=== PATIENT | female | born 1995 | race American Indian/Alaskan Native ===

== ENCOUNTER 2018-12-27 13:51 | Emergency (ER) | payer SELFPAY ==
--- NOTE | 2018-12-27 14:25 | Emergency Department Report ---
Blank Doc - Documentation Documentation: This is a 22-year-old female that presents with some dysuria. Stated is on her menstrual cycle now. Denies any vaginal discharge. This initial assessment/diagnostic orders/clinical plan/treatment(s) is/are subject to change based on patient's health status, clinical progression and re- assessment by fellow clinical providers in the ED. Further treatment and workup at subsequent clinical providers discretion. Patient/guardians urged not to elope from the ED as their condition may be serious if not clinically assessed and managed. Initial orders include: 1- Patient sent to [facility] for further evaluation and treatment 2- UA
--- NOTE | 2018-12-27 14:52 | Emergency Department Report ---
ED Dysuria HPI - HPI Chief Complaint: Urogenital-Female Stated Complaint: URINATION PROBLEMS Time Seen by Provider: 12/27/18 14:24 Duration: 5 Days Location of Discomfort: Urethra (dysuria) Severity: Moderate Symptoms: Dysuria: Yes, Frequency: No, Suprapubic Pain: No, Flank Pain: No, Fever: No, Hematuria: No, Abdominal Pain: No, Previous UTI's: Yes Other History: 23 yo with 1 w hx of dysuria. no vag dc or bleeding. not concerned preg. no fever or chills. ambulatory and non toxic ED Review of Systems ROS: Stated complaint: URINATION PROBLEMS Other details as noted in HPI Comment: All other systems reviewed and negative ED Past Medical Hx - Past Medical History Previous Medical History?: No - Surgical History Past Surgical History?: Yes Additional Surgical History: - Social History Smoking Status: Never Smoker Substance Use Type: None - Medications Home Medications: Home Medications Medication Instructions Recorded Confirmed Last Taken Type Ciprofloxacin HCl [Ciprofloxacin 500 mg PO Q12HR #14 tab 12/27/18 Unknown Rx TAB] Fluconazole [Diflucan TAB] 150 mg PO ONCE #1 tablet 12/27/18 Unknown Rx Dysuria Exam - Exam General: Vital signs noted. No distress. Alert and acting appropriately. Exam: Yes Moist Mucous Membranes, No CVA Tenderness, No Abdominal Tenderness, No Rigidity or Guarding ED Course Vital Signs 12/27/18 14:25 Temperature 98 F Pulse Rate 79 Respiratory 18 Rate Blood Pressure 119/73 O2 Sat by Pulse 100 Oximetry ED Medical Decision Making - Lab Data Result diagrams: 12/27/18 15:32 12/27/18 15:32 - Medical Decision Making Vital Signs 12/27/18 12/27/18 14:25 17:00 Temperature 98 F Pulse Rate 79 62 Respiratory 18 16 Rate Blood Pressure 119/73 Blood Pressure 130/81 [Right] O2 Sat by Pulse 100 100 Oximetry Labs 12/27/18 12/27/18 12/27/18 14:38 15:32 15:32 WBC 9.2 RBC 3.87 Hgb 12.4 Hct 37.1 MCV 96 MCH 32 MCHC 33 RDW 13.2 Plt Count 215 Sodium 143 Potassium 4.7 Chloride 106.2 Carbon Dioxide 28 Anion Gap 14 BUN 8 Creatinine 0.7 Estimated GFR > 60 BUN/Creatinine Ratio 11 Glucose 95 Calcium 9.3 Urine Color Yellow Urine Turbidity Slightly-cloudy Urine pH 6.0 Ur Specific [place] 1.019 Urine Protein 100 mg/dl Urine Glucose (UA) Neg Urine Ketones Neg Urine Blood Mod Urine Nitrite Neg Urine Bilirubin Neg Urine Urobilinogen < 2.0 Ur Leukocyte Esterase Mod Urine WBC (Auto) > 182.0 H Urine RBC (Auto) 61.0 U Epithel Cells (Auto) 8.0 Urine Mucus Few Urine HCG, Qual Negative lmp current non toxic taking po ambulatory labs noted wbc normal no cva tenderness abd snt preg neg medicated in ER dc home with dc plan of care. - Differential Diagnosis ro preg/ro uti/ro pylo. Critical care attestation.: If time is entered above; I have spent that time in minutes in the direct care of this critically ill patient, excluding procedure time. ED Disposition Clinical Impression: UTI (urinary tract infection) Disposition: DC-01 TO HOME OR SELFCARE Is pt being admited?: No Does the pt Need Aspirin: No Condition: Stable Instructions: Urinary Tract Infection in Women (ED) Additional Instructions: DIET TOLERATED MEDS ORDERED TODAY IN ER FOLLOW INSTRUCTIONS ON THE BOTTLE FOLLOW UP PCP WITHIN 48 HOURS TO ENSURE YOU ARE GETTING BETTER ACTIVITY TOLERATED MOTRIN OR TYLENOL FOR PAIN OR FEVER RETURN TO THE ER FOR WORSENING SYMPTOMS NOT RELIEVED BY YOUR MEDICATIONS. Prescriptions: Ciprofloxacin HCl [Ciprofloxacin TAB] 500 mg PO Q12HR #14 tab Fluconazole [Diflucan TAB] 150 mg PO ONCE #1 tablet Referrals: TASHA OCHOA MD [Primary Care Provider] - 3-5 Days SOFIE RETANA MD [Staff Physician] - 3-5 Days Time of Disposition: 16:39
[2018-12-27 14:56] LABS: Bilirubin,Urine NEG (Negative); Blood,Urine MOD (Negative); Color,Urine Yellow (Yellow); Mucus,Urine FEW /HPF; Urobilinogen,Urine < 2.0 mg/dL (<2.0)
[2018-12-27 14:57] LABS: WBC,Urine > 182.0 /HPF (0.0-6.0)
[2018-12-27 14:58] LABS: HCG Qualitative,Urine Negative (Negative)
[2018-12-27] MEDS ORDERED: NACL 0.9% 1000 ML 1,000 ML IV ONE (15:05)
[2018-12-27] MEDS ORDERED: ROCEPHIN/NS 1 GM/50 ML 1 GM/50 ML BAG IV ONE (15:05)
[2018-12-27 15:42] LABS: Hematocrit 37.1 % (30.3-42.9); Hemoglobin 12.4 gm/dl (10.1-14.3); Mean Corpuscular HGB Conc 33 % (30-34); Mean Corpuscular Volume 96 fl (79-97); Platelet Count 215 K/mm3 (140-440); Red Blood Count 3.87 M/mm3 (3.65-5.03); Red Cell Distribution Width 13.2 % (13.2-15.2)
[2018-12-27 16:15] LABS: BUN/Creatinine Ratio 11; Blood Urea Nitrogen 8 mg/dL (7-17); Calcium 9.3 mg/dL (8.4-10.2); Hemolysis Index 10
[2018-12-27 17:01] VITALS: BP 130/81
== END 2018-12-27 17:01 | disposition home or self-care (01) ==
LOC: ED 13:51
DX: N39.0 Urinary tract infection, site not specified (principal)
CPT/HCPCS: 36415; 80048; 81001; 81025; 85027; 96365; 99283; J0696; J7030

== ENCOUNTER 2019-04-19 14:18 | Emergency (ER) | payer MEDICAID ==
[2019-04-19 15:22] VITALS: BP 133/85
--- NOTE | 2019-04-19 17:56 | Emergency Department Report ---
ED ENT HPI - General Chief complaint: Dental/Oral Stated complaint: GUM PAIN/POSS INFECTION Time Seen by Provider: 04/19/19 17:47 Source: patient Mode of arrival: Ambulatory Limitations: No Limitations - History of Present Illness MD complaint: tooth pain -: Sudden (yesterday) Location: other (left upper canine) 1 - painful Severity: moderate Severity scale (0 -10): 10 Quality: sharp Consistency: constant Improves with: NSAID Worsens with: eating Associated Symptoms: gum swelling, toothache. denies: fever, cough, pain with swallowing, sore throat, tinnitus, hearing loss, discharge from ear, rhinorrhea - Related Data Previous Rx's Medication Instructions Recorded Last Taken Type Ciprofloxacin HCl [Ciprofloxacin 500 mg PO Q12HR #14 tab 12/27/18 Unknown Rx TAB] Fluconazole [Diflucan TAB] 150 mg PO ONCE #1 tablet 12/27/18 Unknown Rx Clindamycin [Clindamycin CAP] 300 mg PO Q6H #40 capsule 04/19/19 Unknown Rx Ketorolac [Toradol] 10 mg PO Q6H PRN #20 tablet 04/19/19 Unknown Rx Allergies Allergy/AdvReac Type Severity Reaction Status Date / Time No Known Allergies Allergy Unverified 12/27/18 13:58 ED Dental HPI - General Chief complaint: Dental/Oral Stated complaint: GUM PAIN/POSS INFECTION Time Seen by Provider: 04/19/19 17:47 Source: patient Mode of arrival: Ambulatory Limitations: No Limitations - Related Data Previous Rx's Medication Instructions Recorded Last Taken Type Ciprofloxacin HCl [Ciprofloxacin 500 mg PO Q12HR #14 tab 12/27/18 Unknown Rx TAB] Fluconazole [Diflucan TAB] 150 mg PO ONCE #1 tablet 12/27/18 Unknown Rx Clindamycin [Clindamycin CAP] 300 mg PO Q6H #40 capsule 04/19/19 Unknown Rx Ketorolac [Toradol] 10 mg PO Q6H PRN #20 tablet 04/19/19 Unknown Rx Allergies Allergy/AdvReac Type Severity Reaction Status Date / Time No Known Allergies Allergy Unverified 12/27/18 13:58 ED Review of Systems ROS: Stated complaint: GUM PAIN/POSS INFECTION Other details as noted in HPI Comment: All other systems reviewed and negative Constitutional: denies: chills, fever ENT: dental pain Respiratory: no symptoms reported Cardiovascular: denies: chest pain Gastrointestinal: denies: nausea, vomiting ED Past Medical Hx - Past Medical History Previous Medical History?: No - Surgical History Past Surgical History?: Yes Additional Surgical History: - Social History Smoking Status: Never Smoker Substance Use Type: None - Medications Home Medications: Home Medications Medication Instructions Recorded Confirmed Last Taken Type Ciprofloxacin HCl [Ciprofloxacin 500 mg PO Q12HR #14 tab 12/27/18 Unknown Rx TAB] Fluconazole [Diflucan TAB] 150 mg PO ONCE #1 tablet 12/27/18 Unknown Rx Clindamycin [Clindamycin CAP] 300 mg PO Q6H #40 capsule 04/19/19 Unknown Rx Ketorolac [Toradol] 10 mg PO Q6H PRN #20 tablet 04/19/19 Unknown Rx ED Physical Exam - General Limitations: No Limitations General appearance: alert - Head Head exam: Present: atraumatic - Expanded ENT Exam Expanded Mouth exam: Absent: drooling, trismus, muffled voice, tongue normal, tongue el evation Teeth exam: Present: dental caries (left upper [place]inie), dental tenderness # (left upper canine with associated abscess; mild swelling left maxillary area but no cellulitis) Throat exam: Positive: normal inspection - Neck Neck exam: Present: normal inspection - Respiratory Respiratory exam: Absent: respiratory distress - Cardiovascular Cardiovascular Exam: Present: regular rate - Neurological Exam Neurological exam: Present: alert, altered, oriented X3, CN II-XII intact, normal gait - Psychiatric Psychiatric exam: Present: normal affect, normal mood ED Course Vital Signs 04/19/19 14:51 Temperature 98.4 F Pulse Rate 76 Respiratory 18 Rate Blood Pressure 133/85 O2 Sat by Pulse 100 Oximetry Critical care attestation.: If time is entered above; I have spent that time in minutes in the direct care of this critically ill patient, excluding procedure time. ED Disposition Clinical Impression: Dental abscess Disposition: DC- TO HOME OR SELFCARE Is pt being admited?: No Does the pt Need Aspirin: No Condition: Stable Instructions: Dental Abscess (ED) Prescriptions: Clindamycin [Clindamycin CAP] 300 mg PO Q6H #40 capsule Ketorolac [Toradol] 10 mg PO Q6H PRN #20 tablet PRN Reason: Pain Time of Disposition: 17:58
== END 2019-04-19 18:20 | disposition home or self-care (01) ==
LOC: ED 14:18
DX: K04.7 Periapical abscess without sinus (principal); K02.9 Dental caries, unspecified; Z79.899 Other long term (current) drug therapy

== ENCOUNTER 2020-09-08 16:42 | Emergency (ER) | payer MEDICAID ==
[2020-09-08 17:47] LABS: Basophils # (Auto) 0.1 K/mm3 (0.0-0.1); Basophils % (Auto) 0.6 % (0.0-1.8); Eosinophils # (Auto) 0.1 K/mm3 (0.0-0.4); Eosinophils % (Auto) 1.2 % (0.0-4.3); Hematocrit 37.3 % (30.3-42.9); Hemoglobin 12.4 gm/dl (10.1-14.3); Lymphocytes # (Auto) 2.5 K/mm3 (1.2-5.4); Lymphocytes % (Auto) 22.8 % (13.4-35.0); Mean Corpuscular HGB Conc 33 % (30-34); Mean Corpuscular Volume 89 fl (79-97); Monocytes # (Auto) 0.8 K/mm3 (0.0-0.8); Monocytes % (Auto) 7.2 % (0.0-7.3); Platelet Count 296 K/mm3 (140-440); Red Blood Count 4.21 M/mm3 (3.65-5.03); Red Cell Distribution Width 15.6 % (13.2-15.2)
[2020-09-08 18:05] LABS: Alanine Aminotransferase 14 units/L (7-56); Albumin 4.3 g/dL (3.9-5); Blood Urea Nitrogen 4 mg/dL (7-17); Calcium 9.1 mg/dL (8.4-10.2); Hemolysis Index 6
[2020-09-08 18:13] LABS: BUN/Creatinine Ratio 7
--- NOTE | 2020-09-08 18:58 | Emergency Department Report ---
ED ENT HPI - General Chief complaint: Dental/Oral Stated complaint: SWOLLEN GUMS/FACE/TOOTH Time Seen by Provider: 09/08/20 17:27 Source: patient Mode of arrival: Ambulatory Limitations: No Limitations - History of Present Illness Initial comments: 24-year-old female presents to the emergency room complaining of dental pain and swelling to her face. Patient admits that she does have some dental issues and is working on trying to get them taken care of. Patient reports that the pain is severe. It was noted the patient had elevated blood pressure in triage. Patient denies any headache no chest pain or shortness of breath or change of vision. MD complaint: tooth pain - Related Data Previous Rx's Medication Instructions Recorded Last Taken Type Ciprofloxacin HCl [Ciprofloxacin 500 mg PO Q12HR #14 tab 12/27/18 Unknown Rx TAB] Fluconazole (Nf) [Diflucan TAB] 150 mg PO ONCE #1 tablet 12/27/18 Unknown Rx Ketorolac [Toradol] 10 mg PO Q6H PRN #20 tablet 04/19/19 Unknown Rx Acetaminophen/Codeine [Tylenol 1 tab PO Q6H PRN #12 tab 09/08/20 Unknown Rx /Codeine # 3 tab] Clindamycin [Clindamycin CAP] 300 mg PO Q6H #40 capsule 09/08/20 Unknown Rx amLODIPine 5 mg PO DAILY #30 tab 09/08/20 Unknown Rx Allergies Allergy/AdvReac Type Severity Reaction Status Date / Time No Known Allergies Allergy Unverified 12/27/18 13:58 ED Dental HPI - General Chief complaint: Dental/Oral Stated complaint: SWOLLEN GUMS/FACE/TOOTH Time Seen by Provider: 09/08/20 17:27 Source: patient Mode of arrival: Ambulatory Limitations: No Limitations - Related Data Previous Rx's Medication Instructions Recorded Last Taken Type Ciprofloxacin HCl [Ciprofloxacin 500 mg PO Q12HR #14 tab 12/27/18 Unknown Rx TAB] Fluconazole (Nf) [Diflucan TAB] 150 mg PO ONCE #1 tablet 12/27/18 Unknown Rx Ketorolac [Toradol] 10 mg PO Q6H PRN #20 tablet 04/19/19 Unknown Rx Acetaminophen/Codeine [Tylenol 1 tab PO Q6H PRN #12 tab 09/08/20 Unknown Rx /Codeine # 3 tab] Clindamycin [Clindamycin CAP] 300 mg PO Q6H #40 capsule 09/08/20 Unknown Rx amLODIPine 5 mg PO DAILY #30 tab 09/08/20 Unknown Rx Allergies Allergy/AdvReac Type Severity Reaction Status Date / Time No Known Allergies Allergy Unverified 12/27/18 13:58 ED Review of Systems ROS: Stated complaint: SWOLLEN GUMS/FACE/TOOTH Other details as noted in HPI Comment: All other systems reviewed and negative ED Past Medical Hx - Past Medical History Previous Medical History?: Yes Hx Hypertension: Yes - Surgical History Additional Surgical History: x 2 - Social History Smoking Status: Current Every Day Smoker Substance Use Type: Alcohol, Marijuana - Medications Home Medications: Home Medications Medication Instructions Recorded Confirmed Last Taken Type Ciprofloxacin HCl [Ciprofloxacin 500 mg PO Q12HR #14 tab 12/27/18 Unknown Rx TAB] Fluconazole (Nf) [Diflucan TAB] 150 mg PO ONCE #1 tablet 12/27/18 Unknown Rx Ketorolac [Toradol] 10 mg PO Q6H PRN #20 tablet 04/19/19 Unknown Rx Acetaminophen/Codeine [Tylenol 1 tab PO Q6H PRN #12 tab 09/08/20 Unknown Rx /Codeine # 3 tab] Clindamycin [Clindamycin CAP] 300 mg PO Q6H #40 capsule 09/08/20 Unknown Rx amLODIPine 5 mg PO DAILY #30 tab 09/08/20 Unknown Rx ED Physical Exam - General Limitations: No Limitations General appearance: alert, in no apparent distress - Head Head exam: Present: atraumatic, normocephalic - Eye Eye exam: Present: normal appearance - ENT ENT exam: Present: mucous membranes moist - Expanded ENT Exam Expanded Teeth exam: Present: dental caries, dental tenderness #, gingival enlargement Throat exam: Positive: normal inspection - Neck Neck exam: Present: normal inspection, full ROM - Respiratory Respiratory exam: Present: normal lung sounds bilaterally. Absent: respiratory distress, accessory muscle use - Cardiovascular Cardiovascular Exam: Present: regular rate, normal rhythm. Absent: systolic murmur, diastolic murmur, rubs, gallop - GI/Abdominal GI/Abdominal exam: Present: soft, normal bowel sounds - Back Exam Back exam: Present: normal inspection - Neurological Exam Neurological exam: Present: alert, oriented X3, normal gait - Psychiatric Psychiatric exam: Present: normal affect, normal mood - Skin Skin exam: Present: warm, dry, intact, normal color. Absent: rash ED Course Vital Signs 09/08/20 16:58 Temperature 98.1 F Pulse Rate 94 H Respiratory 20 Rate Blood Pressure 164/101 O2 Sat by Pulse 100 Oximetry ED Medical Decision Making - Lab Data Result diagrams: 09/08/20 17:33 09/08/20 17:33 - Medical Decision Making 24-year-old female presents to the emergency room complaining of dental pain and swelling to her face. Patient admits that she does have some dental issues and is working on trying to get them taken care of. Patient reports that the pain is severe. It was noted the patient had elevated blood pressure in triage. Patient denies any headache no chest pain or shortness of breath or change of vision. Educated patient on the concerns of having her blood pressure still high at young age. Basic labs were performed she shows no renal insufficiency. Discussed with patient could be because of her stress level. Also discussed with patient I will start her on a low-dose of amlodipine 5 mg as well as clindamycin and tramadol for her dental concerns. Patient will be referred to a dentist as well as a primary care provider. Critical care attestation.: If time is entered above; I have spent that time in minutes in the direct care of this critically ill patient, excluding procedure time. ED Disposition Clinical Impression: HTN (hypertension), Dental abscess Disposition: TO HOME OR SELFCARE Is pt being admited?: No Does the pt Need Aspirin: No Condition: Stable Instructions: Hypertension (ED), Dental Abscess, [id number], Hypertension, Adult, [id number] Additional Instructions: Very important for you to take your blood pressure medication as prescribed. Decrease her use of ibuprofen that this could be a reason why her blood pressure is elevated. Complete your antibiotics as prescribed. Increase your water intake. Take the Tylenol 3 for pain do not operate heavy machinery. Very important for you to follow-up with a primary care provider and a dentist I have listed below for your convenience. Prescriptions: amLODIPine 5 mg PO DAILY #30 tab Clindamycin [Clindamycin CAP] 300 mg PO Q6H #40 capsule Acetaminophen/Codeine [Tylenol /Codeine # 3 tab] 1 tab PO Q6H PRN #12 tab PRN Reason: Pain , Severe (7-10) Referrals: PRIMARY CARE, [Primary Care Provider] - 3-5 Days [facility] [Provider Group] - 3-5 Days [facility] [Outside] - 3-5 Days [facility] [Outside] - 3-5 Days
[2020-09-08] MEDS ORDERED: HYDROcodone/ACETAMINOPHEN 5-325 MG TAB PO ONE (19:06)
[2020-09-08 20:08] VITALS: BP 156/96
== END 2020-09-08 20:07 | disposition home or self-care (01) ==
LOC: ED 16:42
DX: I10 Essential (primary) hypertension (principal); K04.7 Periapical abscess without sinus; F17.200 Nicotine dependence, unspecified, uncomplicated; F12.10 Cannabis abuse, uncomplicated; Z79.899 Other long term (current) drug therapy
CPT/HCPCS: 36415; 80053; 85025; 99283